=== PATIENT | male | born 1975 | race Caucasian/White ===

== ENCOUNTER 2025-06-11 09:07 | Emergency (ER) | payer SELFPAY ==
[2025-06-11 09:25] VITALS: BP 163/98; PULSE 87; RESP 18; TEMP 36.7; O2SAT 97; BMI 25.1
--- NOTE | 2025-06-11 09:27 | XRR_ITS ---
PROCEDURE INFORMATION: Exam: XR Left Foot Exam date and time: 06/11/2025 9:30 AM Age: 50 years old Clinical indication: Swelling, leg or foot; Cellulitis red swelling TECHNIQUE: Imaging protocol: Radiologic exam of the left foot. Views: 3 or more views. COMPARISON: No relevant prior studies available. FINDINGS: Bones/joints: Normal. Soft tissues: Normal. XR/XR foot LT min 3V* [id number] IMPRESSION: No acute osseous findings.
--- NOTE | 2025-06-11 09:32 | W.ED.EXTPRO ---
HPI - Extremity Problem General: Chief complaint: Extremity Problem,Nontraumatic Stated complaint: L foot swelling, pain, red line on foot Time Seen by Provider: 06/11/25 09:09 Source: patient Mode of arrival: ambulatory Limitations: no limitations History of Present Illness: 50-year-old male who states he had been floating on Monday he states since then he noticed some redness and pain to his left fourth toe had some slight streaking up his foot since then. States he had a one-time fever of 101 he denies any known injury. No history of diabetes denies any ankle or knee pain Associated symptoms: Deny chest pain, fever(s) or rash Related Data Previous Rx's ?Medication ?Instructions ?Recorded amoxicillin 500 mg-potassium 1 tab PO BID #20 tabs 06/11/25 clavulanate 125 mg tablet (Augmentin) hydrocodone 5 mg-acetaminophen 325 1 tab PO Q6H PRN pain #14 tabs 06/11/25 mg tablet Allergies Allergy/AdvReac Type Severity Reaction Status Date / Time No Known Allergies Allergy Verified 06/11/25 09:29 Review of Systems Const: Denies: fever(s), chills, body aches or change in appetite ENMT: Denies: throat pain or dental pain Card: Denies: chest pain Resp: Denies: dyspnea GI: Denies: abdominal pain, nausea, vomiting or diarrhea Musc: Reports: extremity pain; Denies: neck pain or back pain Skin/Breast: Reports: erythema; Denies: rash Neuro: Denies: headache(s) Physical Exam Const: COMMON NORMALS: no acute distress, patient oriented x3 and healthy appearing HENMT: COMMON NORMALS: normocephalic and atraumatic HEAD & SCALP: normocephalic and atraumatic Eye: COMMON NORMALS: conjunctivae normal CONJUNCTIVA: Yes conjunctivae normal Neck/C-Spine: COMMON NORMALS: full ROM and supple Chest: COMMONS NORMALS: normal inspection of the chest Resp: COMMON NORMALS: normal respiratory effort Cardio: COMMON NORMALS: regular rate RATE: regular rate Extremity: COMMON NORMALS: full ROM NARRATIVE EXTREMITY EXAM: Slight erythema and swelling to left fourth toe no abscess no necrosis has some slight streaking up his foot not past his ankle Neuro: COMMON NORMALS: patient oriented x3, moves all extremities and no focal motor deficits Psych: COMMON NORMALS: mental status grossly normal, Normal thought process present and cooperative THOUGHT PROCESS: Normal thought process present Skin: COMMON NORMALS: no rashes or lesions noted and no wounds GENERAL SKIN EXAM: no rashes or lesions noted Course Vital Signs: Vital signs: Vital Signs Temperature 98.1 F 06/11/25 09:25 Pulse Rate 100 06/11/25 09:53 Respiratory Rate 16 06/11/25 09:53 Blood Pressure 163/98 06/11/25 09:53 Pulse Oximetry 96 06/11/25 09:53 Oxygen Delivery Me thod Room Air 06/11/25 09:53 MDM - Extremity (Nontraumatic) Medical Decision Making Patient presents here with cellulitis to his left toe has no signs of sepsis no signs of osteomyelitis did give him a dose of vancomycin here we will start him on Augmentin he is to follow-up with his PCP and return if worsening. Medical Records I reviewed the patient's medical records. Lab Data I reviewed the patient's lab results. 06/11/25 09:45 06/11/25 09:45 Laboratory Results WBC 14.09 10^3/uL (3.29-11.43) H 06/11/25 09:45 RBC 4.66 10^6/uL (3.85-5.65) 06/11/25 09:45 Hgb 14.30 g/dL (11.27-16.99) 06/11/25 09:45 Hct 41.6 % (37-53) 06/11/25 09:45 MCV 89.3 fl (82-101) 06/11/25 09:45 MCH 30.7 pg (27-33) 06/11/25 09:45 MCHC 34.4 g/dL (30-55) 06/11/25 09:45 RDW 13.6 % (12.1-15.1) 06/11/25 09:45 Plt Count 294 10^3/cmm (157-399) 06/11/25 09:45 MPV 8.9 fL (7.4-10.4) 06/11/25 09:45 Neut % (Auto) 79.7 % 06/11/25 09:45 Lymph % (Auto) 11.5 % 06/11/25 09:45 Merrick % (Auto) 8.0 % 06/11/25 09:45 Eos % (Auto) 0.2 % 06/11/25 09:45 Baso % (Auto) 0.3 % 06/11/25 09:45 Neut # (Auto) 11.23 10^3/uL (1.8-7.7) H 06/11/25 09:45 Lymph # (Auto) 1.6 10^3/uL (0.8-4.8) 06/11/25 09:45 Merrick # (Auto) 1.1 10^3/uL (0.2-0.9) H 06/11/25 09:45 Eos # (Auto) 0.0 10^3/uL (0.0-0.8) 06/11/25 09:45 Baso # (Auto) 0.0 10^3/uL (0.0-0.1) 06/11/25 09:45 Nucleated RBC % (auto) 0 % 06/11/25 09:45 Nucleated RBCs # 0.0 /100WBC 06/11/25 09:45 ESR 3 mm/hr (0-10) 06/11/25 09:45 Sodium 138 mmol/L (136-145) 06/11/25 09:45 Potassium 3.6 mmol/L (3.5-5.1) 06/11/25 09:45 Chloride 102 mmol/L (98-107) 06/11/25 09:45 Carbon Dioxide 25 mmol/L (22-29) 06/11/25 09:45 Anion Gap 14.6 (5-19) 06/11/25 09:45 BUN 14 mg/dL (6-20) 06/11/25 09:45 Creatinine 0.9 mg/dL (0.7-1.2) 06/11/25 09:45 GFR Calculation 89.3 mL/min (90-130) L 06/11/25 09:45 Glucose 125 mg/dL (65-115) H 06/11/25 09:45 Calculated Osmolality 288 mOsm/kg (285-295) 06/11/25 09:45 Calcium 9.1 mg/dL (8.5-10.5) 06/11/25 09:45 Total Bilirubin 0.6 mg/dL (0.15-1.2) 06/11/25 09:45 AST 18 U/L (0-40) 06/11/25 09:45 Alkaline Phosphatase 58 U/L (40-130) 06/11/25 09:45 C-Reactive Protein 53.0 mg/L (0.0-4.9) H 06/11/25 09:45 Total Protein 7.7 g/dL (6.6-8.7) 06/11/25 09:45 Albumin 4.4 g/dL (3.5-5.2) 06/11/25 09:45 Globulin 3.3 g/dL (1.3-4.6) 06/11/25 09:45 XR interpretation done by ED provider, pending radiology final review ED provider radiology interpretation(s): xr L foot: no acute abnormality Discharge Plan Discharge Patient Disposition: Home Clinical Impression: Cellulitis Qualifiers: Site of cellulitis: extremity Site of cellulitis of extremity: toe Laterality: left Qualified Code(s): L03.032 - Cellulitis of left toe Condition: Stable Prescriptions: New hydrocodone-acetaminophen 5-325 mg tablet 1 tab PO Q6H PRN (Reason: pain) Qty: 14 0RF amoxicillin-pot clavulanate [Augmentin] 500-125 mg tablet 1 tab PO BID Qty: 20 0RF Discharge Orders: Discharge ED (Routine); Ordered 06/11/25 Ordered By: Salazar Xie Discharge Diet: Advance as tolerated Discharge Activity: Resume usual activity Patient Instructions: Cellulitis (ED), Opioid Safety Print Language: Ecuadorean Coding Level of Care Code ED Mechanical Integrity Specialist for Charlie Krishnan
[2025-06-11] MEDS: ondansetron 2 mg/ML SDV 2 mL 4 MG IVP (09:49)
[2025-06-11] MEDS: morphine 4 mg/mL SDV 1 mL IVP (09:49)
[2025-06-11 09:53] VITALS: BP 163/98; PULSE 100; RESP 16; O2SAT 96
[2025-06-11 10:02] LABS: Hematocrit 41.6 % (37-53); Hemoglobin 14.30 g/dL (11.27-16.99); Mean Corpuscular HGB Conc 34.4 g/dL (30-55); Mean Corpuscular Hemoglobin 30.7 pg (27-33); Mean Corpuscular Volume 89.3 fl (82-101); Nucleated Red Blood Cells % 0 %; Platelet Count 294 10^3/cmm (157-399); Red Blood Count 4.66 10^6/uL (3.85-5.65); White Blood Count 14.09 10^3/uL (3.29-11.43)
[2025-06-11 10:15] LABS: Albumin Level 4.4 g/dL (3.5-5.2); Alkaline Phosphatase 58 U/L (40-130); Anion Gap 14.6 (5-19); Aspartate Amino Transferase 18 U/L (0-40); Blood Urea Nitrogen 14 mg/dL (6-20); Calcium 9.1 mg/dL (8.5-10.5); Carbon Dioxide 25 mmol/L (22-29); Chloride 102 mmol/L (98-107); Creatinine Clr Calc Pharmacy 104.9328; Globulin 3.3 g/dL (1.3-4.6); Glucose 125 mg/dL (65-115); Osmolality Calculated 288 mOsm/kg (285-295); Potassium 3.6 mmol/L (3.5-5.1); Sodium 138 mmol/L (136-145); Total Protein 7.7 g/dL (6.6-8.7)
[2025-06-11 10:26] LABS: Alanine Aminotransferase 18 U/L (0-41)
[2025-06-11 10:49] VITALS: BP 158/90; PULSE 78; RESP 16; O2SAT 97
== END 2025-06-11 10:54 | disposition home or self-care (01) ==
PROVIDERS: Emergency Provider Emergency Medicine
DX: L03.032 Cellulitis of left toe (principal)
CPT/HCPCS: 36415; 73630; 80053; 85025; 85651; 86140; 96365; 96375; 99284; J2270; J2405; J3373; J7050